=== PATIENT | female | born 1990 | race Caucasian/White ===

== ENCOUNTER → 2017-09-22 | Outpatient (CLI) | payer OTHER ==
[~2017-09-22] MED LIST: GING250C3 PO; LEVO1IUD2 IY; PREN-127 PO; PYRI25TA18 PO; RANI-366 PO
--- NOTE | 2017-09-22 18:07 | RADIOLOGY IMAGING REPORT ---
FACILITY: [facility] PATIENT NAME: Destiny Ott : 1990 MR: [id number] V: [id number] EXAM DATE: ORDERING PHYSICIAN: SHILPA ZIEGLER TECHNOLOGIST: Location: [facility] [place] Patient: Destiny Ott : 1990 Visit/Account:[id number] Date of Sevice: 09/22/2017 OB >14 WEEKS HISTORY: Normal first , second trimester COMPARISON: None. TECHNIQUE: Transabdominal imaging was performed for assessment of the fetus and maternal pelvic s tructures. Transvaginal imaging was not performed. FINDINGS: Intrauterine gestations: One. presentation: Breech with the head towards the maternal right. heart rate: 136 bpm. Amniotic fluid volume: Normal; GIANLUCA 14.2 cm; MVP 4.4 cm. Placenta: Anterior with no evidence of a placenta previa. Uterus: Gravid, otherwise grossly unremarkable where visualized. Maternal adnexa/ovaries: Grossly unremarkable, ovaries not visualized. Cervix: Grossly long and closed.. Cervical length 3.97 cm Gestational Parameters: BPD: 4.8 HC: 17.7 AC: 15 FL: 3.2 Average ultrasound age (AUA): 20 weeks/ two days Estimated age based on LMP: 20 weeks/ one days Estimated weight (EFW): 333 grams +/- 49 grams Anatomic Survey: Intracranial structures, 4-chamber heart, stomach, kidneys, urinary bladder, spine, 3-vessel cord and cord insertion are unremarkable. Two upper and two lower extremities visualized. IMPRESSION: There is a single viable fetus in breech presentation with an estimated gestational age of 20 weeks a nd two days by measurements and estimated weight of 333 g +/- 40 9 g Report Dictated By: Tammy Jameson MD at 09/22/2017 5:57 PM Report E-Signed By: Tammy Jameson MD at 09/22/2017 6:04 PM WSN:[email or web address]
== END ==
LOC: RAD 09:55
PROVIDERS: ATTEND Obstetrics & Gynecology
DX: Z02.9 Encounter for administrative examinations, unspecified (principal)
CPT/HCPCS: 76811

== ENCOUNTER → 2017-11-06 | Outpatient (CLI) | payer OTHER ==
[~2017-11-06] MED LIST changes: +DIPH0.5D12 IM; +RHO(150015 IM
[2017-11-06 10:58] LABS: PLATELET COUNT, AUTOMATED 310 K/uL (150-450)
== END ==
LOC: LAB 10:42
PROVIDERS: ATTEND Obstetrics & Gynecology
DX: Z34.92 Encounter for supervision of normal pregnancy, unspecified, second trimester (principal)
CPT/HCPCS: 36415; 82950; 85025

== ENCOUNTER → 2018-01-12 | Outpatient (CLI) | payer OTHER ==
[~2018-01-12] MED LIST changes: +ACET-1966 PO; +BREA1EAC; +BUTA1TAB14 PO; +NITR-105 PO; +ONDA4TAB97 PO
== END ==
LOC: LAB 11:27
PROVIDERS: ATTEND Student in an Organized Health Care Education/Training Program
DX: Z02.9 Encounter for administrative examinations, unspecified (principal)

== ENCOUNTER → 2018-01-12 | Outpatient (CLI) | payer OTHER | LOC: LAB 09:26 | PROVIDERS: ATTEND Student in an Organized Health Care Education/Training Program | DX: Z34.90 Encounter for supervision of normal pregnancy, unspecified, unspecified trimester (principal); N39.0 Urinary tract infection, site not specified; B96.20 Unspecified Escherichia coli [E. coli] as the cause of diseases classified elsewhere | CPT/HCPCS: 87077; 87081; 87088; 87186 ==

== ENCOUNTER 2018-02-01 20:16 | Inpatient (IN) | payer OTHER ==
[~2018-02-01] VITALS: Ht 162.6 cm; Wt 68.0 kg
[2018-02-01] MEDS ORDERED: LR(*) 1000 ML BAG 1,000 ML IV PRN (20:19)
[2018-02-01] MEDS ORDERED: DLR(*) 1000 ML BAG 1,000 ML IV PRN (20:19)
--- NOTE | 2018-02-01 20:49 | History & Physical ---
History of Present Illness EDC per LMP: Feb 08, 2018 Chief Complaint Loss of fluid History of Present Illness 27-year-old at 39w0d presents with loss of fluid starting tonight. She denies significant contractions at this time. She had some blood tinged discharge after feeling LOF. Reports FM. No preeclampsia symptoms. PNR reviewed, PNC by VALERIE. c/b Rh negative (Rhophylac 11/06/17) and anxiety. GBS negative. History Patient's Blood Type: AB Negative Rubella Status: Immune Group B Strep Screen: Negative Obstetrical History: Primip Past Medical History: PMH: Anxiety, ADHD PSH: Bunionectomy Allergies: Coded Allergies: No Known Drug Allergies (Unverified , 01/18/16) Social History: No T/E/D. . Family History: FH: ADHD (attention deficit hyperactivity disorder) FH: arrhythmia PATERNAL GRANDFATHER, Age:76 FH: heart disease PATERNAL GRANDMOTHER, Age:74 FH: hypertension MATERNAL GRANDFATHER, Age:71 FH: lung cancer MATERNAL GRANDMOTHER, , Age:60 FH: peptic ulcer FATHER, Age:51 FH: skin cancer PATERNAL GRANDFATHER, Age:76 No pertinent family history MOTHER, Age:50 Med Rec Home Meds Active Scripts Nitrofurantoin Monohyd/M-Cryst (MACROBID 100 MG CAPSULE) 100 Mg Capsule, 100 MG PO BID for 7 Days, #14 CAPSULE 0 Refills Prov:DEMI VELASQUEZ DO 01/14/18 Ondansetron Hcl (ZOFRAN) 4 Mg Tablet, 4 MG PO Q4-6H PRN for NAUSEA, #30 TAB 1 Refill Prov:EVA,DEMI DO 01/12/18 Breast Pump (Pump in Style Advanced) 1 Each Each, EACH Use as directed, #1 0 Refills Prov:DEMI VELASQUEZ DO 12/16/17 Reported Medications Butalb/Acetaminophen/Caff 50-325-40 Mg (FIORICET 50-325-40) 1 Each Tablet, 1-2 TAB PO Q4H PRN for HEADACHE, #30 TAB 01/13/18 Acetaminophen (TYLENOL) 325 Mg Tablet, 325 MG PO PRN, TAB 11/18/17 Justin Root (JUSTIN) 250 Mg Capsule, 250 MG PO PRN, CAPSULE 09/16/17 Pyridoxine Hcl (VITAMIN B-6) 25 Mg Tablet, 25 MG PO 09/16/17 Vits W-Ca,Fe,Fa(<1MG) ( VITAMINS) 1 Each Tablet, 1 EACH PO DAILY, TAB.CHEW 09/16/17 Review of Systems Constitutional: No Fever Neurological: No Syncope Eyes: No Vision Change ENT: No Hearing Loss Cardiovascular: No Chest Pain Respiratory: No Shortness of Breath Gastrointestinal: No Nausea, No Vomiting, No Diarrhea Genitourinary: No Dysuria Musculoskeletal: No Pain Psychiatric: Anxiety; No Depression Exam General Exam Vital Signs VS reviewed General Apperance: Alert/Awake/No Acute Distress Neuro: No Gross deficits Eyes: Normal Extraocular Movement & Vison Cardiovascular: Regular Rate and Rhythm Respiratory: No Respiratory Distress, Clear to Auscultation Abdomen: Gravid - Non-Tender : Normal Musculoskeletal: No Weakness/Pain Extremities: No Cyanosis,Clubbing or Edema Integumentary: Skin Intact without Lesions or Rash Psychological: Alert & Oriented X3, Appropriate Mood & Affect Cervical Dialation: 5 Cervical Effacement (%): 75 Cervical Consistency: Soft Cervical Position: Mid Station: 0 Presentation: Vertex Fetus FHT Category: I Medical Decision Making Pre-Admit Course Medical Record Review: Yes VTE Prophylasis: Adult Deep Vein Thrombosis/Pulmonary: No Pharmacological Contraindicati: Pt at Low Risk for VTE Mechanical Contraindications: Pt at Low Risk for VTE Assessment and Plan Problems: (1) Spontaneous onset of labor Assessment & Plan: 27yo at 39wks presents in labor with possible SROM. Since she is in labor, will defer amnisure. However, I suspect she did SROM at 1930. Will admit and get epidural. Anticipate . (2) 39 weeks gestation of (3) Rh negative status during Assessment & Plan: Rhophylac evaluation . Problem Qualifiers (1) Rh negative status during : Trimester: third trimester Qualified Codes: O09.893 - Supervision of other high risk pregnancies, third trimester; Z67.91 - Unspecified blood type, rh negative SHILPA ZIEGLER MD Feb 01, 2018 20:32
[2018-02-01] MEDS ORDERED: LIDOCAINE/PF 2% 200MG/10ML AMP 200 MG/10 ML AMPUL EPI PRN (21:15)
[2018-02-01] MEDS ORDERED: BUPIVACAINE 0.25% MPF INJ EPI PRN (21:15)
[2018-02-01] MEDS ORDERED: fentaNYL CITR 100 MCG/2 ML AMP IT PRN (21:15)
[2018-02-01] MEDS ORDERED: ONDANSETRON 4 MG/2 ML VIAL IVP PRN (21:15)
[2018-02-01] MEDS ORDERED: BUPIVACAINE 0.5% INJ 30ML VIAL EPI PRN (21:15)
[2018-02-01] MEDS ORDERED: EPIDURAL KEYS XX PRN (21:15)
[2018-02-01] MEDS ORDERED: FENTANYL/ROPIVACAINE 100 ML BAG EPI PRN (21:15)
[2018-02-01] MEDS ORDERED: LIDO/EPI 2% MPF 1:200,000 20ML EPI PRN (21:15)
[2018-02-01] MEDS ORDERED: LIDOCAINE/SOD BICARB 8.4% SYR SC PRN (21:25)
[2018-02-01] MEDS ORDERED: LR(*) 1000 ML BAG 1,000 ML IV SCH (21:25)
[2018-02-01] MEDS ORDERED: OXYTOCIN 30 UNIT/D5LR 500 ML 500 ML IV PRN (21:25)
[2018-02-01] MEDS ORDERED: LIDOCAINE 1% LOCAL 300 MG/30ML INJ PRN (21:25)
[2018-02-01] MEDS ORDERED: FAMOTIDINE(*) 20MG/50ML PREMIX 50 ML IVPB PRN (21:25)
[2018-02-01] MEDS ORDERED: fentaNYL CITR 100 MCG/2 ML AMP IVP PRN (21:25)
[2018-02-01] MEDS ORDERED: FLUSH 10 ML SYR IVP PRN (21:25)
[2018-02-01] MEDS ORDERED: METOCLOPRAMIDE 10 MG/2 ML SDV IVP PRN (21:25)
[2018-02-01] MEDS ORDERED: FENTANYL/ROPIVACAINE 100ML BAG 100 ML ONE ×2 (21:30→21:32)
[2018-02-01] MEDS ORDERED: BUPIVACAINE 0.25% MPF INJ ONE (21:30)
[2018-02-01] MEDS ORDERED: ONDANSETRON 4 MG/2 ML VIAL ONE (21:30)
[2018-02-01] MEDS ORDERED: fentaNYL CITR 100 MCG/2 ML AMP ONE (21:30)
[2018-02-01 21:33] LABS: PLATELET COUNT, AUTOMATED 291 K/uL (150-450)
--- NOTE | 2018-02-01 22:19 | Labor Progress Note ---
Labor Subjective Progress Notes Subjective Pt is now comfortable with epidural. No concerns. Labor Objective Vaginal Discharge/Fluid?: Clear Fluid Cervical Dialation: 8 Cervical Effacement (%): 80 Cervical Consistency: Soft Cervical Position: Mid Station: 0 Presentation: Vertex Uterine Contractions(Q min): 4 Uterine Contraction Strength: Strong UC Resting Tone: Soft Fetus Heart Tones: 170 Heart Tone Variabilty: Moderate FHT Accelerations: 15X15 FHT Decelerations: None FHT Category: II General Exam General Appearance: Alert/Awake/No Acute Distress : Normal Psychological: Alert & Oriented X3, Appropriate Mood & Affect Other Result Diagram: 02/01/18 2100 Assessment and Plan Problems: (1) Spontaneous onset of labor Assessment & Plan: Pt is now comfortable with epidural. There is tachycardia, but otherwise the strip looks good. No evidence of maternal infection at this time. Will continue to monitor closely. (2) 39 weeks gestation of (3) Rh negative status during Assessment & Plan: Rhophylac evaluation . Problem Qualifiers (1) Rh negative status during : Trimester: third trimester Qualified Codes: O09.893 - Supervision of other high risk pregnancies, third trimester; Z67.91 - Unspecified blood type, rh negative SHILPA ZIEGLER MD Feb 01, 2018 22:19
--- NOTE | 2018-02-01 22:22 | Anesthesia OB Pre-Anes Eval ---
History of Present Illness Anesthesia Start Date: Feb 01, 2018 Anesthesia Start Time: 21:40 OB Anesthesia Diagnosis: spontaneous labor : 1 Para: 0 Vital Signs: See OB record Pain Ratin Result Diagram: 02/01/182099 Height (Inches): 64 Weight (Pounds): 150 Past Medical History Home Meds Active Scripts Nitrofurantoin Monohyd/M-Cryst (MACROBID 100 MG CAPSULE) 100 Mg Capsule, 100 MG PO BID for 7 Days, #14 CAPSULE 0 Refills Prov:DEMI VELASQUEZ DO 01/14/18 Ondansetron Hcl (ZOFRAN) 4 Mg Tablet, 4 MG PO Q4-6H PRN for NAUSEA, #30 TAB 1 Refill Prov:DEMI VELASQUEZ DO 01/12/18 Breast Pump (Pump in Style Advanced) 1 Each Each, EACH Use as directed, #1 0 Refills Prov:DEMI VELASQUEZ DO 12/16/17 Reported Medications Butalb/Acetaminophen/Caff 50-325-40 Mg (FIORICET 50-325-40) 1 Each Tablet, 1-2 TAB PO Q4H PRN for HEADACHE, #30 TAB 01/13/18 Acetaminophen (TYLENOL) 325 Mg Tablet, 325 MG PO PRN, TAB 11/18/17 Justin Root (JUSTIN) 250 Mg Capsule, 250 MG PO PRN, CAPSULE 09/16/17 Pyridoxine Hcl (VITAMIN B-6) 25 Mg Tablet, 25 MG PO 09/16/17 Vits W-Ca,Fe,Fa(<1MG) ( VITAMINS) 1 Each Tablet, 1 EACH PO DAILY, TAB.CHEW 09/16/17 Allergies: Coded Allergies: No Known Drug Allergies (Unverified , 01/18/16) JAILYN CHAPMAN CRNA Feb 01, 2018 22:22
--- NOTE | 2018-02-01 22:24 | Anesthesia OB Pre-Anes Eval ---
History of Present Illness : 1 Para: 0 Pain Ratin Result Diagram: 02/01/18 2100 Height (Inches): 64 Weight (Pounds): 150 Past Medical History Home Meds Active Scripts Nitrofurantoin Monohyd/M-Cryst (MACROBID 100 MG CAPSULE) 100 Mg Capsule, 100 MG PO BID for 7 Days, #14 CAPSULE 0 Refills Prov:DEMI VELASQUEZ DO 01/14/18 Ondansetron Hcl (ZOFRAN) 4 Mg Tablet, 4 MG PO Q4-6H PRN for NAUSEA, #30 TAB 1 Refill Prov:DEMI VELASQUEZ DO 01/12/18 Breast Pump (Pump in Style Advanced) 1 Each Each, EACH Use as directed, #1 0 Refills Prov:DEMI VELAQSUEZ DO 12/16/17 Reported Medications Butalb/Acetaminophen/Caff 50-325-40 Mg (FIORICET 50-325-40) 1 Each Tablet, 1-2 TAB PO Q4H PRN for HEADACHE, #30 TAB 01/13/18 Acetaminophen (TYLENOL) 325 Mg Tablet, 325 MG PO PRN, TAB 11/18/17 Justin Root (JUSTIN) 250 Mg Capsule, 250 MG PO PRN, CAPSULE 09/16/17 Pyridoxine Hcl (VITAMIN B-6) 25 Mg Tablet, 25 MG PO 09/16/17 Vits W-Ca,Fe,Fa(<1MG) ( VITAMINS) 1 Each Tablet, 1 EACH PO DAILY, TAB.CHEW 09/16/17 Allergies: Coded Allergies: No Known Drug Allergies (Unverified , 01/18/16) JAILYN CHAPMAN CRNA Feb 01, 2018 22:23
--- NOTE | 2018-02-01 22:33 | Procedure Note ---
Anesthetic Placement Note Anesthesia Plan: LEB Permit for Anesthesia Signed: Yes Anesthesia Technique: Patient Sitting Anesthesia Prep: Betadine Interspace: L 3-4 Amount Local - cc's: 3 Anesthesia Needle: 17g Touhy/Schliff Anesthesia Attempts: 1 Loss of Resistance: Air Depth of EMANUEL (cm): 3 Cerebral Spinal Fluid: No Catheter Insertion (cm): 5 Catheter Type: Kunz - Spring Wound Epidural Dressing: Tegaderm, Tape Anesthesia Tray: Lot Number ([id number]), Expiration Date (2019-01-23), Reference Number ([id number]) Comment: Epidural placed without difficulty. Catheter threaded easily. test dose negative. Anesthesia Medications: Epidural Test Dose: 1.5 Lido/Epi (1:200,000), Dose - mL (5), Time (2150 hrs), Negative Epidural Loading Dose: 0.2% Ropivicaine, With Fentanyl 2mcg/ml, Dose - ml (9), Time (2157), Other (plus 100 mcgs of fentanyl) Epidural Infusion: 0.2% Ropivicaine, With Fentanyl 2mcg/ml, Start Time: (7), Other Epidural Pump Setting: Bolus Dose - mL (5), Lockout - Minutes (10), Maintenance Rate - mL/hr (10), Maximum per Hour - mL (20) Complications: None Comment: Catheter placed at 2148 JAILYN CHAPMAN CRNA Feb 01, 2018 22:32
[2018-02-01 23:30] VITALS: BP 129/83
[2018-02-02] VITALS (23 sets, daily range): BP systolic 79–144; BP diastolic 36–92
[2018-02-02] MEDS ORDERED: DEXAMETHASONE SOD 4 MG/ML VIAL ONE ×2 (01:12)
[2018-02-02] MEDS ORDERED: OXYTOCIN 10 UNIT/ML SDV ONE ×5 (01:13→01:58)
[2018-02-02] MEDS ORDERED: LIDO/EPI 2% MPF 1:200,000 20ML ONE (01:15)
[2018-02-02] MEDS ORDERED: ceFAZolin(*) 2GM/D5W 50ML 50 ML IVPB ONE ×2 (01:20→09:43)
--- NOTE | 2018-02-02 01:22 | Labor Progress Note ---
Labor Subjective Progress Notes Subjective Pt is comfortable with epidural. Labor Objective Vaginal Discharge/Fluid?: Clear Fluid Cervical Dialation: 9 Cervical Effacement (%): 80 Cervical Consistency: Soft Cervical Position: Mid Station: 0 Presentation: Vertex Uterine Contractions(Q min): 3 Fetus Heart Tones: 170 Heart Tone Variabilty: Minimal FHT Accelerations: 15X15 FHT Decelerations: Late FHT Category: II General Exam General Appearance: Alert/Awake/No Acute Distress Psychological: Alert & Oriented X3, Appropriate Mood & Affect Other Result Diagram: 02/01/18 2100 Assessment and Plan Problems: (1) Spontaneous onset of labor Assessment & Plan: Pt is still comfortable. FHT are still Category 2, but becoming more concerning. She is still having tachycardia in the 170 range, but the variability is now minimal most of the time. In addition, over the past hour, she has developed occasional recurrent late decels. On exam, the cervix is 9cm and still at 0 station. I have recommended a delivery due to concern for status. We discussed R/B/A and she would like to proceed with . (2) 39 weeks gestation of (3) Rh negative status during Problem Qualifiers (1) Rh negative status during : Trimester: third trimester Qualified Codes: O09.893 - Supervision of other high risk pregnancies, third trimester; Z67.91 - Unspecified blood type, rh negative SHILPA ZIEGLER MD Feb 02, 2018 01:22
[2018-02-02] MEDS ORDERED: PHENYLEPHRINE 10 MG/1 ML VIAL ONE (01:31)
[2018-02-02] MEDS ORDERED: MORPHINE PF 5 MG/10 ML AMP ONE (01:45)
[2018-02-02] MEDS ORDERED: DLR(*) 1000 ML BAG 1,000 ML IV PRN (02:26)
[2018-02-02] MEDS ORDERED: OXYTOCIN 30 UNIT/LR 500 ML 500 ML IV PRN (02:26)
[2018-02-02] MEDS ORDERED: ONDANSETRON 4 MG/2 ML VIAL IV PRN (02:30)
[2018-02-02] MEDS ORDERED: DIPHTH/TETANUS/ACEL. PERTUSSIS IM ONE (02:30)
[2018-02-02] MEDS ORDERED: PROMETHAZINE 25 MG/ML 1 ML AMP IVP PRN (02:30)
[2018-02-02] MEDS ORDERED: LANOLIN OINT 7 GM TUBE TP PRN (02:30)
[2018-02-02] MEDS ORDERED: SIMETHICONE 80 MG CHEW CHEW PRN (02:30)
[2018-02-02] MEDS ORDERED: ACETAMINOPHEN 325 MG TAB PO PRN (02:30)
[2018-02-02] MEDS ORDERED: INFLUENZA VIRUS VAC 0.5 ML SYR IM ONE (02:30)
[2018-02-02] MEDS ORDERED: MAGNESIUM HYDROXIDE* 30ML UDCP PO PRN (02:30)
[2018-02-02] MEDS ORDERED: MEASLES,MUMP,RUBELLA VAC 0.5ML SC ONE (02:30)
--- NOTE | 2018-02-02 03:13 | Post Operative Note ---
Operative Note - [employer] Operative Day Date: Feb 02, 2018 Physicians Surgeon: Hugo Anesthesia: Epidural, Ed Rosario Diagnosis Pre-Op Diagnosis: IUP at 39wks in spontaneous active labor Persistent category 2 tracing Post-Op Diagnosis: Same Viable male, 0150hrs, 3452g (7#9oz), Apgars 6/7 Procedure Procedure(s): PLTCD Specimen Removed:(Maybe N/A): Placenta with cultures Fluids Fluids: IVF: 1400cc UOP: 250cc Estimated Blood Loss: 1000cc SHILPA ZIEGLER MD Feb 02, 2018 03:12
[2018-02-02] MEDS ORDERED: LR(*) 1000 ML BAG 1,000 ML ONE ×2 (03:14→03:59)
--- NOTE | 2018-02-02 03:15 | Anesthesia OB Pre-Anes Eval ---
History of Present Illness Anesthesia Start Date: Feb 01, 2018 Anesthesia Start Time: 21:40 OB Anesthesia Diagnosis: spontaneous labor : 1 Para: 0 Pain Ratin Result Diagram: 02/01/18 2100 Height (Inches): 64 Weight (Pounds): 150 Past Medical History Medical History: no pertinent history Surgical History: other (bunionectomy) Previous Anesthesia: other (local with mac) Attended Childbirth Classes?: No Hx Anesthesia Reactions: No Hx Family Anesthesia Reaction: No Home Meds Active Scripts Nitrofurantoin Monohyd/M-Cryst (MACROBID 100 MG CAPSULE) 100 Mg Capsule, 100 MG PO BID for 7 Days, #14 CAPSULE 0 Refills Prov:DEMI VELASQUEZ DO 01/14/18 Ondansetron Hcl (ZOFRAN) 4 Mg Tablet, 4 MG PO Q4-6H PRN for NAUSEA, #30 TAB 1 Refill Prov:DEMI VELASQUEZ DO 01/12/18 Breast Pump (Pump in Style Advanced) 1 Each Each, EACH Use as directed, #1 0 Refills Prov:DEMI VELASQUEZ DO 12/16/17 Reported Medications Butalb/Acetaminophen/Caff 50-325-40 Mg (FIORICET 50-325-40) 1 Each Tablet, 1-2 TAB PO Q4H PRN for HEADACHE, #30 TAB 01/13/18 Acetaminophen (TYLENOL) 325 Mg Tablet, 325 MG PO PRN, TAB 11/18/17 Justin Root (JUSTIN) 250 Mg Capsule, 250 MG PO PRN, CAPSULE 09/16/17 Pyridoxine Hcl (VITAMIN B-6) 25 Mg Tablet, 25 MG PO 09/16/17 Vits W-Ca,Fe,Fa(<1MG) ( VITAMINS) 1 Each Tablet, 1 EACH PO DAILY, TAB.CHEW 09/16/17 Allergies: Coded Allergies: No Known Drug Allergies (Unverified , 01/18/16) Anesthesia OB ROS Airway Class: ll GI ROS: clear liquids ASA Classification: 2, E Assessment and Plan Anesthesia Plan: LEB Anesthesia Stop Day: Feb 02, 2018 Anesthesia Stop Time: 02:30 Condition doing well overall. intermittent hypotension treated with neosynephrine and ephedrine. will give additional 500 ml bolus. JAILYN CHAPMAN CRNA Feb 02, 2018 03:15
--- NOTE | 2018-02-02 03:16 | Anesthesia Progress Note ---
Progress/Maintenance Anesthesia Note Date: Feb 02, 2018 Anesthesia Note Time: 01:25 Pain Intensity: 0 Pump: Off Anesthesia Treatment: going to c/section JAILYN CHAPMAN CRNA Feb 02, 2018 03:16
[2018-02-02] MEDS ORDERED: OXYC-865 PO (03:22)
[2018-02-02] MEDS ORDERED: IBUP800T37 PO (03:22)
[2018-02-02] MEDS ORDERED: fentaNYL CITR 100 MCG/2 ML AMP ONE (03:31)
[2018-02-02] MEDS ORDERED: ACETAMINOPHEN(*)1000 MG/100 ML 100 ML IVPB ONE (03:35)
--- NOTE | 2018-02-02 03:54 | OB/GYN Progress Note ---
OB Subjective Progress Notes Subjective Pt is feeling ok. She is still in recovery. She is her baby. Dr. Buchanan reports baby is doing well. There is no obvious sign of infection at this time, so no antibiotics for baby yet. OB Objective Physical Exam Vital Signs Date Time Temp Pulse Resp B/P (MAP) Pulse Ox O2 Delivery O2 Flow Rate FiO2 02/02/18 03:45 101.3 147 16 110/82 (91) 95 Nasal Cannula 2.0 General Appearance: Alert/Awake/No Acute Distress Eyes: Normal Extraocular Movement & Vison Cardiovascular: Normal Rhythm & Peripheral Pulses, Regular Rate and Rhythm Respiratory: No Respiratory Distress Abdomen: Soft, Non-Tender, Non-Distended, Fundus Firm : Normal Extremities: No Cyanosis,Clubbing or Edema Integumentary: Skin Intact without Lesions or Rash Psychological: Alert & Oriented X3, Appropriate Mood & Affect Result Diagram: 02/01/18 2100 Assessment and Plan Problems: (1) Postoperative fever Assessment & Plan: Pt has a 101F axillary temperature. Will do a dose of IV Tylenol. Due to the situation, will plan to initiate endomyometritis antibiotics. Will plan clindamycin 900mg Q8hrs plus gentamicin 1.5mg/kg Q8hr. (2) Status post delivery Assessment & Plan: POD#0 s/p PLTCD. Routine orders, except as above. (3) Rh negative status during Assessment & Plan: Rhophylac eval pending. Problem Qualifiers (1) Rh negative status during : Trimester: third trimester Qualified Codes: O09.893 - Supervision of other high risk pregnancies, third trimester; Z67.91 - Unspecified blood type, rh negative SHILPA ZIEGLER MD Feb 02, 2018 03:54
[2018-02-02] MEDS ORDERED: CLINDAMYCIN 900 MG/6 ML 900 MG in NS(*) 0.9% 100 ML BAG 100 ML IVPB SCH (04:00)
[2018-02-02] MEDS: KETOROLAC 30 MG/ML VIAL IVP SCH ×3 (04:15→19:20)
[2018-02-02] MEDS ORDERED: GENTAMICIN IVPB SCH (05:00)
[2018-02-02] MEDS ORDERED: NS 0.9% IVPB SCH (05:00)
[2018-02-02] MEDS ORDERED: CLINDAMYCIN(*) 900 MG/NS 50 ML 50 ML ONE (05:52)
[2018-02-02] MEDS: DOCUSATE CALCIUM 240 MG CAP PO SCH ×2 (09:15→20:39)
[2018-02-02] MEDS ORDERED: METOCLOPRAMIDE 10 MG/2 ML SDV ONE (09:43)
[2018-02-02] MEDS ORDERED: FAMOTIDINE(*) 20MG/50ML PREMIX 50 ML IVPB ONE (09:43)
[2018-02-02] MEDS: FAMOTIDINE 20 MG TAB PO SCH ×2 (09:56→20:39)
--- NOTE | 2018-02-02 10:20 | OPERATIVE REPORT 1 ---
EVENT DATE: February 01, 2018 SURGEON: Shayla Arias MD ANESTHESIA: Epidural STEEL MANAGER: Kalpesh Ponce CRNA PREOPERATIVE DIAGNOSIS 1. Intrauterine at 39 weeks presenting in spontaneous active labor. 2. Persistent category II tracing ( tachycardia, minimal variability, recurrent late deceleration). POSTOPERATIVE DIAGNOSIS 1. Intrauterine at 39 weeks presenting in spontaneous active labor. 2. Persistent category II tracing ( tachycardia, minimal variability, recurrent late deceleration). 3. Delivery of viable male infant at 0150 hours weighing 3452 grams, or 7 pounds 9 ounces, with of 6 at one minute and 7 at five minutes. PROCEDURE PERFORMED Primary low transverse delivery. SPECIMENS Placenta with cultures. IV FLUIDS 1400 cc. URINE OUTPUT 250 cc. ESTIMATED BLOOD LOSS 1000 cc. INDICATIONS FOR PROCEDURE This patient is a 27-year-old 1, para 0 who presented at 39 weeks and 0 days in spontaneous active labor. At the time of presentation, she was noted to be 5 cm dilated, 70% effaced and 0 station. She was miguel regularly and had experienced spontaneous rupture of membranes approximately two hours prior. At the time of presentation, the heart tones were tachycardic in the 160- 170 range with occasional minimal variability. However, often times her variability was moderate with accelerations. Her baseline would range between 150-170. She was monitored closely and allowed to progress in labor. She did receive an epidural for anesthesia at approximately midnight on February 01, 2018. She did start developing occasional decelerations. These were late in timing. Once this was noted, it was recommended that the patient proceed with a primary delivery to expedite delivery due to a persistent category II tracing. After discussing the risks, benefits and alternatives, she did elect to proceed. Please see the history and physical and labor notes for full detail. DESCRIPTION OF PROCEDURE The patient was properly identified and taken to the operating room. She had an epidural previously placed, which was just prior to going to the operating room. She also had a Jackman in previously during labor. She was transitioned to the operating room bed, placed in supine position with leftward tilt and prepped and draped in the usual fashion for a lower abdominal surgery. After adequate anesthesia was confirmed, a Pfannenstiel incision was made with scalpel and carried down to the level of the rectus fascia. The fascia was nicked in the midline and extended in a blunt fashion. The rectus fascia was from the underlying rectus muscle in a blunt fashion. The peritoneum was then identified and entered in blunt fashion and the incision was extended bluntly. A scalpel was utilized to make a low transverse incision, revealing ruptured membranes. This incision was also extended in a cephalocaudal manner. The 's vertex was then delivered easily through the uterine incision followed by the anterior shoulder and the posterior shoulder. The remainder of the infant was easily delivered. The infant was relatively flaccid with minimal tone initially. Therefor, the infant was stimulated with only a small cry spontaneously. Therefore, the cord was clamped quickly and cut and the infant was passed to nursing personnel in critical condition. Cord blood was then obtained and passed off the table. The placenta subsequently was delivered manually intact and passed off the table as well. Cultures were obtained from the placenta and the placenta was sent to pathology. At this time, Pitocin was started through IV fluid to help firm the uterus and the uterus was exteriorized. The uterus was cleared of any remaining clot or debris. The uterine incision was reapproximated using 0 Vicryl, working from one apex to the next in a running locking fashion. A second imbricating layer of 0 Monocryl was utilized to reapproximate the incision further. Examination of bilateral fallopian tubes and ovaries did appear within normal limits. Adequate hemostasis was assured at this time. Therefore, the uterus was replaced in the abdominal cavity. Paracolic gutters were cleared of clots and debris. The uterine incision was again inspected and noted to be hemostatic. The peritoneum was then reapproximated using 2-0 Monocryl followed by reapproximation of the muscle. The muscle was then copiously irrigated and made hemostatic with electrocautery. The rectus fascia was then reapproximated using an 0 Vicryl, working from one apex to the next. Copious irrigation in the subcutaneous tissue was performed and hemostasis was assured. The subcutaneous tissue was reapproximated using a 2-0 Monocryl followed by closure of the skin with Insorb maximiliano. A Primapore dressing was placed followed by Medipore tape and fluff for a pressure dressing. The patient tolerated the procedure well and recovered in Post-Anesthesia Care Unit on labor and delivery. All sponge, needle and instrument counts were correct at the end of this procedure. Dr. Buchanan was called to the room for assistant store leader with management of the baby after delivery. The baby was taken to the nursery initially; however, during recovery was able to go back to mom. The ten minute should be available in the 's chart. Dr. Buchanan did request culture evaluation of the placenta, which was sent. MAYKEL
[2018-02-02] MEDS: CLINDAMYCIN(*) 900 MG/NS 50 ML 50 ML IVPB SCH ×2 (14:44→22:00)
[2018-02-02] MEDS: GENTAMICIN IVPB SCH ×2 (15:39→22:39)
[2018-02-02] MEDS: NS 0.9% IVPB SCH ×2 (15:39→22:39)
[2018-02-03] VITALS (7 sets, daily range): BP systolic 92–114; BP diastolic 68–78
[2018-02-03] MEDS ORDERED: IBUPROFEN 800 MG TAB PO SCH
[2018-02-03] MEDS: IBUPROFEN 800 MG TAB PO SCH ×3 (01:10→17:49)
[2018-02-03] MEDS: CLINDAMYCIN(*) 900 MG/NS 50 ML 50 ML IVPB SCH ×2 (05:54→22:41)
[2018-02-03 06:05] LABS: PLATELET COUNT, AUTOMATED 213 K/uL (150-450)
[2018-02-03] MEDS: NS 0.9% IVPB SCH ×3 (06:31→23:08)
[2018-02-03] MEDS: GENTAMICIN IVPB SCH ×3 (06:31→23:08)
--- NOTE | 2018-02-03 08:43 | OB/GYN Progress Note ---
OB Subjective Progress Notes Subjective Doing good this morning. Reports that she has had one void since having prabhakar removed. with minimal difficulty. Tolerating po intake. Having difficulty with pain control but only taking one percocet at a time. Bleeding appropriate. Reports no fevers since surgery. GI: NEG Nausea, NEG Vomiting, NEG Flatus, NEG Bowel Movement : Voiding Well Pain: Moderate, Tolerating PO Pain Meds Neurological: No Headache, No Other Eyes: No Visual Disturbances OB Objective Physical Exam Vital Signs Date Time Temp Pulse Resp B/P (MAP) Pulse Ox O2 Delivery O2 Flow Rate FiO2 02/03/18 06:15 83 15 110/69 (83) 94 02/03/18 02:50 98.1 Room Air 02/03/18 00:21 1.0 Intake and Output 02/03/18 06:59 Intake Total 2670.5 ml Output Total 4350 ml Balance -1679.5 ml Intake Oral 462 ml IV Total 2208.5 ml Output Urine Total 4350 ml General Appearance: Alert/Awake/No Acute Distress Eyes: Normal Extraocular Movement & Vison, PERRLA Cardiovascular: Normal Rhythm & Peripheral Pulses, Regular Rate and Rhythm Respiratory: No Respiratory Distress Abdomen: Soft, Non-Tender, Non-Distended, Fundus Firm Incision: Clean, Dressing : Normal Extremities: No Cyanosis,Clubbing or Edema Integumentary: Skin Intact without Lesions or Rash Psychological: Alert & Oriented X3, Appropriate Mood & Affect Result Diagram: 02/03/18 0549 Assessment and Plan UTILITY PORTER Assessment: Stable UTILITY PORTER Plan: Routine Post- Care, Routine Post-Op Care Problems: (1) Postoperative fever (2) Status post delivery Assessment & Plan: Last temperature 0430 of 02/02/18. Will continue IV antibiotics 48 hours post fever. Culture/gram stain pending but only reported as few WBC's and no organisms. Will await final culture results to determine PO antibiotics. Pt H/H 7.4/21 down from 12. Will saline lock IV and monitor vitals. Repeat H&H this evening. If patient continues to be below 8 will transfuse 1 unit of PRBC's. Pt to get percocet PO X 2 tabs for pain scheduled until pain controlled. (3) Rh negative status during Problem Qualifiers (1) Rh negative status during : Trimester: third trimester Qualified Codes: O09.893 - Supervision of other high risk pregnancies, third trimester; Z67.91 - Unspecified blood type, rh negative DEMI VELASQUEZ DO Feb 03, 2018 08:43
[2018-02-03] MEDS: FAMOTIDINE 20 MG TAB PO SCH ×2 (10:25→21:09)
[2018-02-03] MEDS: DOCUSATE CALCIUM 240 MG CAP PO SCH ×2 (10:25→21:09)
[2018-02-03] MEDS ORDERED: ACETAMINOPHEN 325 MG TAB PO PRN (14:05)
[2018-02-03] MEDS ORDERED: LANOLIN OINT 7 GM TUBE TP PRN (14:10)
[2018-02-03] MEDS ORDERED: FLUSH 10 ML SYR IVP PRN (14:10)
[2018-02-03] MEDS ORDERED: DLR(*) 1000 ML BAG 1,000 ML IV PRN (14:10)
[2018-02-03] MEDS ORDERED: PROMETHAZINE 25 MG/ML 1 ML AMP IVP PRN (14:15)
[2018-02-03] MEDS ORDERED: ONDANSETRON 4 MG/2 ML VIAL IV PRN (14:15)
[2018-02-03] MEDS ORDERED: OXYTOCIN 30 UNIT/LR 500 ML 500 ML IV PRN (14:15)
[2018-02-03] MEDS ORDERED: MAGNESIUM HYDROXIDE* 30ML UDCP PO PRN (14:15)
[2018-02-03] MEDS ORDERED: SIMETHICONE 80 MG CHEW CHEW PRN (14:15)
--- NOTE | 2018-02-03 14:16 | Anesthesia Post Eval Note ---
Anesthesia Post Eval Note stable Pt able to participate in Eval: Yes Cardiovascular Status: Satisfactory Respiratory Status: Satisfactory Pain Managment: Satisfactory PO Nausea/Vomiting: Satisfactory Temperature Management: Satisfactory Mental Status: Satisfactory Post-Op Hydration Status: Satisfactory Anesthesia Type: LEB Anesthesia Tolerance: questions invited. no problems noted. this eval was done 02/02/2018 at 1900hrs. JAILYN CHAPMAN CRNA Feb 03, 2018 14:16
[2018-02-03 17:13] LABS: PLATELET COUNT, AUTOMATED 234 K/uL (150-450)
[2018-02-03] MEDS: FERROUS SULFATE 325 MG TAB PO SCH (18:44)
[2018-02-03] MEDS ORDERED: CLINDAMYCIN(*) 900 MG/NS 50 ML 50 ML IVPB SCH (22:00)
[2018-02-04] MEDS: IBUPROFEN 800 MG TAB PO SCH ×2 (00:36→10:37)
[2018-02-04 02:55] VITALS: BP 108/67
[2018-02-04] MEDS: CLINDAMYCIN(*) 900 MG/NS 50 ML 50 ML IVPB SCH (05:50)
[2018-02-04] MEDS: GENTAMICIN IVPB SCH (06:33)
[2018-02-04] MEDS: NS 0.9% IVPB SCH (06:33)
[2018-02-04] MEDS: FERROUS SULFATE 325 MG TAB PO SCH (08:00)
--- NOTE | 2018-02-04 08:11 | OB/GYN Progress Note ---
OB Subjective Progress Notes Subjective Doing well. Pain controlled with oral medications. Tolerating regular diet. Ambulating. Voiding. Normal lochia. No preeclampsia symptoms. No dizziness, chest pain or shortness of breath. OB Objective Physical Exam Vital Signs Date Time Temp Pulse Resp B/P (MAP) Pulse Ox O2 Delivery O2 Flow Rate FiO2 02/04/18 02:55 97.5 88 12 108/67 (81) 94 Room Air 02/03/18 00:21 1.0 Intake and Output 02/04/18 07:00 # Voids 4 General Appearance: Alert/Awake/No Acute Distress Eyes: Normal Extraocular Movement & Vison, PERRLA Cardiovascular: Normal Rhythm & Peripheral Pulses, Regular Rate and Rhythm Respiratory: No Respiratory Distress Abdomen: Soft, Non-Tender, Non-Distended, Fundus Firm Incision: Clean, Dry, Intact : Normal Extremities: No Cyanosis,Clubbing or Edema Integumentary: Skin Intact without Lesions or Rash Psychological: Alert & Oriented X3, Appropriate Mood & Affect Result Diagram: 02/03/18 0117 Assessment and Plan Problems: (1) Status post delivery Assessment & Plan: POD#2 s/p PLTCD Meeting milestones. Desires discharge to home today. Discussed routine expectations. Questions answered. Follow up in clinic in 2wks for incision check and 6wks for check. (2) Postoperative fever Assessment & Plan: S/p 48hr antibiotics. Resolved. (3) Rh negative status during Assessment & Plan: Rhophylac eval PP. Problem Qualifiers (1) Rh negative status during : Trimester: third trimester Qualified Codes: O09.893 - Supervision of other high risk pregnancies, third trimester; Z67.91 - Unspecified blood type, rh negative SHILPA ZIEGLER MD Feb 04, 2018 08:11
[2018-02-04] MEDS ORDERED: FERR-41 PO (08:13)
[2018-02-04] MEDS ORDERED: DOCU-416 PO (08:13)
--- NOTE | 2018-02-04 08:13 | OB/GYN Discharge Summary ---
Discharge Summary Reason for Hosp/Final Diag: (1) Status post delivery Hospital Course & Plan: POD#2 s/p PLTCD Meeting milestones. Desires discharge to home today. Discussed routine expectations. Questions answered. Follow up in clinic in 2wks for incision check and 6wks for check. (2) Postoperative fever Hospital Course & Plan: S/p 48hr antibiotics. Resolved. (3) Rh negative status during Hospital Course & Plan: Rhophylac eval PP. Lates Vital Signs Vital Signs Date Time Temp Pulse Resp B/P (MAP) Pulse Ox O2 Delivery O2 Flow Rate FiO2 02/04/18 02:55 97.5 88 12 108/67 (81) 94 Room Air 02/03/18 00:21 1.0 Weight (Pounds): 150 Result Diagram: 02/03/18 1704 Condition: Improved Discharge: Home, Self [facility] Meds Active Scripts Oxycodone Hcl/Acetaminophen (PERCOCET 5-325 MG TABLET) 1 Each Tablet, 1 TAB PO Q4-6H PRN for pain, #30 TAB 0 Refills Prov:SHILPA ZIEGLER MD 02/02/18 Nitrofurantoin Monohyd/M-Cryst (MACROBID 100 MG CAPSULE) 100 Mg Capsule, 100 MG PO BID for 7 Days, #14 CAPSULE 0 Refills Prov:DEMI VELASQUEZ DO 01/14/18 Ondansetron Hcl (ZOFRAN) 4 Mg Tablet, 4 MG PO Q4-6H PRN for NAUSEA, #30 TAB 1 Refill Prov:DEMI VELASQUEZ DO 01/12/18 Breast Pump (Pump in Style Advanced) 1 Each Each, EACH Use as directed, #1 0 Refills Prov:DEMI VELASQUEZ DO 12/16/17 Reported Medications Butalb/Acetaminophen/Caff 50-325-40 Mg (FIORICET 50-325-40) 1 Each Tablet, 1-2 TAB PO Q4H PRN for HEADACHE, #30 TAB 01/13/18 Acetaminophen (TYLENOL) 325 Mg Tablet, 325 MG PO PRN, TAB 11/18/17 Justin Root (JUSTIN) 250 Mg Capsule, 250 MG PO PRN, CAPSULE 09/16/17 Pyridoxine Hcl (VITAMIN B-6) 25 Mg Tablet, 25 MG PO 09/16/17 Vits W-Ca,Fe,Fa(<1MG) ( VITAMINS) 1 Each Tablet, 1 EACH PO DAILY, TAB.CHEW 09/16/17 Follow up Referrals: [employer] - In Two Weeks @ [facility] [place] with SHILPA ZIEGLER MD Discharge Diet: As Tolerates Discharge Activity: No Heavy Lifting > 10lb, Pelvic Rest Problem Qualifiers (1) Rh negative status during : Trimester: third trimester Qualified Codes: O09.893 - Supervision of other high risk pregnancies, third trimester; Z67.91 - Unspecified blood type, rh negative SHILPA ZIEGLER MD Feb 04, 2018 08:13
--- NOTE | 2018-02-04 08:22 | Antimicrobial Stewardship ---
Antimicrobial Time Out Antimicrobial Stewardship MD Service: [employer]S MANAGER Indications: Other (Potential Endomyometritis) Antimicrobial Used 1- Clindamycin 900 mg Q8 HR 2- Gentamicin 1.5 mg/kg Q8 HR Start Date: Feb 02, 2018 Reviewed with Provider Reviewed w/ Provider on Rounds: No (Reviewed with provider on phone call and direct discussion) Date Reviewed w/ Provider: Feb 03, 2018 Comments Comments Patient is high risk for Endomyometritis and she had a . Continue antibiotics until she is afebrile for 48 HR, then discontinue. CORDELL GRIER V Feb 04, 2018 08:22
[2018-02-04 09:30] VITALS: BP 103/64
[2018-02-04] MEDS: DOCUSATE CALCIUM 240 MG CAP PO SCH (10:37)
[2018-02-04] MEDS: FAMOTIDINE 20 MG TAB PO SCH (10:37)
== END 2018-02-04 12:40 | disposition home or self-care (01) | DRG 765 ==
LOC: OB 20:16 → UNDOADMIN 20:16 → OBSVTOIN 20:16 → OB 02-02 04:23
PROVIDERS: ADMIT Obstetrics & Gynecology; ATTEND Obstetrics & Gynecology
PROC: 10D00Z1 Extraction of Products of Conception, Low, Open Approach (ICD-10-PCS; principal; 2018-02-02 01:45)
DX: O41.1230 Chorioamnionitis, third trimester, not applicable or unspecified (principal); O86.4 Pyrexia of unknown origin following delivery; O36.0130 Maternal care for anti-D [Rh] antibodies, third trimester, not applicable or unspecified; O76 Abnormality in fetal heart rate and rhythm complicating labor and delivery; Z37.0 Single live birth; Z3A.39 39 weeks gestation of pregnancy
CPT/HCPCS: 36415; 85025; 86850; 86870; 86900; 86901; 87071; 87073; 87205; 88307; G0378; G0379; J0131; J0690; J1100; J1580; J1885; J2270; J2370; J2405; J2590; J2765; J3010; J3490; J7050; J7120; S0020

== ENCOUNTER → 2018-03-05 | Outpatient (CLI) | payer OTHER ==
[~2018-03-05] MED LIST changes: +DOCU-416 PO; +FERR-41 PO; +IBUP800T37 PO; +OXYC-865 PO; +PER PO
== END ==
LOC: LAB 14:28
PROVIDERS: ATTEND Obstetrics & Gynecology
DX: M54.9 Dorsalgia, unspecified (principal); B96.20 Unspecified Escherichia coli [E. coli] as the cause of diseases classified elsewhere
CPT/HCPCS: 87077; 87088; 87186